=== PATIENT | female | born 1990 | race Caucasian/White ===

== ENCOUNTER 2016-06-19 10:20 | Emergency (ER) | payer OTHER ==
[~2016-06-19] VITALS: Ht 162.6 cm; Wt 112.9 kg
[2016-06-19 14:04] VITALS: BP 117/71
== END 2016-06-19 14:04 | disposition home or self-care (01) ==
LOC: ED 10:20
DX: J20.9 Acute bronchitis, unspecified (principal); E66.9 Obesity, unspecified
CPT/HCPCS: J1885